=== PATIENT | male | born 1975 | race Caucasian/White ===

== ENCOUNTER 2018-09-30 00:27 | Emergency (ER) | payer BC ==
[2018-09-30] MEDS ORDERED: Ondansetron 4 MG/2 ML SDV IVPUSH ONE (00:55)
[2018-09-30] MEDS ORDERED: Sodium Chloride 0.9% 1,000 ML IV STA (00:55)
[2018-09-30] MEDS ORDERED: Sodium Chloride 0.9% 10 ML Syringe FLUSH PRN (00:55)
[2018-09-30] MEDS ORDERED: HYDROmorphone 1 MG/ML Syringe IVPUSH ONE (00:56)
--- NOTE | 2018-09-30 01:44 | EDM.PDOC ---
ED HPI GENERAL MEDICAL PROBLEM - General Chief Complaint: Gastrointestinal Problem Stated Complaint: NAUSEA Time Seen by Provider: 09/30/18 00:45 Source of Information: Reports: Patient History Limitations: Reports: No Limitations - History of Present Illness INITIAL COMMENTS - FREE TEXT/NARRATIVE: The patient presents with right lower abdominal pain, nausea and vomiting. This started about 3 days ago. It was intermittent but now it is constant in the right lower abdomen. He has nausea and vomiting. He has no diarrhea. He still has his appendix and gallbladder. He has no fever, chills, cough, chest pain or shortness of breath. Onset: Gradual Duration: Day(s): (3) Location: Reports: Abdomen Quality: Reports: Sharp Severity: Moderate Improves with: Reports: None Worsens with: Reports: None Associated Symptoms: Reports: Nausea/Vomiting. Denies: Chest Pain, Cough, Fever /Chills, Headaches, Shortness of Breath Bilateral Abdominal Pain Score (Numeric/FACES): 5 - Related Data Allergies Allergy/AdvReac Type Severity Reaction Status Date / Time Cephalosporins Allergy Anaphylactic Verified 09/30/18 00:42 Shock Penicillins Allergy Anaphylactic Verified 09/30/18 00:42 Shock [id number]-[id number] Reductase Allergy Anaphylactic Verified 09/30/18 00:42 Inhibitor Shock Home Meds: Home Meds ALPRAZolam [Alprazolam] 0.25 mg PO BID PRN 09/30/18 [History] DULoxetine [Cymbalta] 09/30/18 [History] Ondansetron [Zofran ODT] 4 mg PO Q6H PRN #20 tab.dis 09/30/18 [Rx] QUEtiapine [SEROquel] 09/30/18 [History] glipiZIDE [Glucotrol] 10 mg PO BID 09/30/18 [History] metFORMIN HCl [Metformin HCl] 1,000 mg PO ASDIRECTED 09/30/18 [History] Past Medical History HEENT History: Reports: Other (See Below) Other HEENT History: abcessed tooth Cardiovascular History: Reports: Other (See Below) Other Cardiovascular History: atherosclerosis of the heart Gastrointestinal History: Reports: Other (See Below) Other Gastrointestinal History: pancreatitis Neurological History: Reports: Other (See Below) Other Neuro History: head injuries Psychiatric History: Reports: Anxiety, Depression, Panic Attack Endocrine/Metabolic History: Reports: Diabetes, Type II - Past Surgical History HEENT Surgical History: Reports: Naso-Sinus Surgery Social & Family History - Tobacco Use Smoking Status *Q: Former Smoker Used Tobacco, but Quit: Yes Month/Year Tobacco Last Used: 20 yrs ago - Caffeine Use Caffeine Use: Reports: Coffee, Energy Drinks - Recreational Drug Use Recreational Drug Use: Yes Drug Use in Last 12 Months: No ED ROS GENERAL - Review of Systems Review Of Systems: See Below Constitutional: Reports: No Symptoms HEENT: Reports: No Symptoms Respiratory: Reports: No Symptoms Cardiovascular: Reports: No Symptoms Endocrine: Reports: No Symptoms GI/Abdominal: Reports: Abdominal Pain (RLQ abdominal pain), Nausea, Vomiting. Denies: Diarrhea : Reports: No Symptoms Musculoskeletal: Reports: No Symptoms ED EXAM, GI/ABD - Physical Exam Exam: See Below Exam Limited By: No Limitations General Appearance: Alert, No Apparent Distress Ears: Normal External Exam Nose: Normal Inspection Head: Atraumatic, Normocephalic Neck: Normal Inspection Respiratory/Chest: No Respiratory Distress, Lungs Clear, Normal Breath Sounds Cardiovascular: Regular Rate, Rhythm, No Edema, No Murmur GI/Abdominal Exam: Soft, No Organomegaly, Tender (Moderate tenderness to the RLQ ) Course - Vital Signs Last Recorded V/S: Last Vital Signs Temp 97.2 F 09/30/18 00:39 Pulse 103 H 09/30/18 00:39 Resp 18 09/30/18 00:39 BP 131/92 H 09/30/18 00:39 Pulse Ox 95 09/30/18 00:39 - Orders/Labs/Meds Orders: Active Orders 24 hr Category Date Time Status Peripheral IV Care [RC] . DIRECTED Care 09/30/18 00:55 Active Abdomen Pelvis w Cont [CT] Stat Exams 09/30/18 00:55 Taken Sodium Chloride 0.9% [Saline Flush] Med 09/30/18 00:55 Active 10 ml FLUSH ASDIRECTED PRN ED Antiemetic Medication Reflex [OM.PC] Stat Oth 09/30/18 00:55 Ordered Peripheral IV Insertion Adult [OM.PC] Stat Oth 09/30/18 00:55 Ordered Medication Orders Sodium Chloride (Saline Flush) 10 ml FLUSH ASDIRECTED PRN PRN Reason: Keep Vein Open Last Admin: 09/30/18 01:34 Dose: 10 ml Labs: Laboratory Tests 09/30/18 09/30/18 09/30/18 Range/Units 01:25 01:25 03:30 WBC 4.93 (4.23-9.07) K/mm3 RBC 4.80 (4.63-6.08) M/mm3 Hgb 13.5 L (13.7-17.5) gm/L Hct 39.9 L (40.1-51.0) % MCV 83.1 (79.0-92.2) fl MCH 28.1 (25.7-32.2) pg MCHC 33.8 (32.2-35.5) g/dl RDW Std Deviation 38.9 (35.1-43.9) fL Plt Count 144 L (163-337) K/mm3 MPV 11.2 (9.4-12.3) fl Neut % (Auto) 64.6 (34.0-67.9) % Lymph % (Auto) 20.3 L (21.8-53.1) % [place] % (Auto) 11.0 (5.3-12.2) % Eos % (Auto) 3.9 (0.8-7.0) Baso % (Auto) 0.0 L (0.1-1.2) % Neut # (Auto) 3.19 (1.78-5.38) K/mm3 Lymph # (Auto) 1.00 L (1.32-3.57) K/mm3 [place] # (Auto) 0.54 (0.30-0.82) K/mm3 Eos # (Auto) 0.19 (0.04-0.54) K/mm3 Baso # (Auto) 0.00 L (0.01-0.08) K/mm3 Sodium 138 (136-145) mEq/L Potassium 4.1 (3.5-5.1) mEq/L Chloride 101 (98-107) mEq/L Carbon Dioxide 26 (21-32) mEq/L Anion Gap 15.1 H (5-15) BUN 16 (7-18) mg/dL Creatinine 1.1 (0.7-1.3) mg/dL Est Cr Clr Drug Dosing 82.91 mL/min Estimated GFR (MDRD) > 60 (>60) mL/min BUN/Creatinine Ratio 14.5 (14-18) Glucose 286 H (74-106) mg/dL Calcium 9.0 (8.5-10.1) mg/dL Total Bilirubin 0.3 (0.2-1.0) mg/dL AST 63 H (15-37) U/L ALT 73 H (16-63) U/L Alkaline Phosphatase 102 (46-116) U/L Total Protein 7.5 (6.4-8.2) g/dl Albumin 3.8 (3.4-5.0) g/dl Globulin 3.7 gm/dL Albumin/Globulin Ratio 1.0 (1-2) Lipase 208 (73-393) U/L Urine Color Yellow (Yellow) Urine Appearance Clear (Clear) Urine pH 6.5 (5.0-8.0) Ur Specific [place] 1.020 (1.005-1.030) Urine Protein Negative (Negative) Urine Glucose (UA) 1+ H (Negative) Urine Ketones Negative (Negative) Urine Occult Blood Negative (Negative) Urine Nitrite Negative (Negative) Urine Bilirubin Negative (Negative) Urine Urobilinogen 0.2 (0.2-1.0) Ur Leukocyte Esterase Negative (Negative) Urine RBC 0-5 (0-5) /hpf Urine WBC 0-5 (0-5) /hpf Ur Epithelial Cells 0-5 (0-5) /hpf Urine Bacteria Not seen (FEW) /hpf Urine Mucus Not seen (FEW) /hpf Meds: Medications Generic Name Dose Route Start Last Admin Trade Name Maya PRN Reason Stop Dose Admin Sodium Chloride 10 ml 09/30/18 00:55 09/30/18 01:34 Saline Flush FLUSH 10 ml ASDIRECTED PRN Administration Keep Vein Open Discontinued Medications Generic Name Dose Route Start Last Admin Trade Name Maya PRN Reason Stop Dose Admin Hydromorphone HCl 0.5 mg 09/30/18 00:56 09/30/18 01:34 Dilaudid IVPUSH 09/30/18 00:57 0.5 mg ONETIME ONE Administration Sodium Chloride 1,000 mls @ 1,000 mls/hr 09/30/18 00:55 09/30/18 01:32 Normal Saline IV 09/30/18 01:54 1,000 mls/hr .BOLUS STA Administration Iopamidol 100 ml 09/30/18 03:10 09/30/18 03:12 Isovue-300 (61%) IVPUSH 09/30/18 03:11 100 ml ONETIME ONE Administration Metoclopramide HCl 10 mg 09/30/18 02:55 09/30/18 03:00 Reglan IVPUSH 09/30/18 02:56 10 mg ONETIME ONE Administration Ondansetron HCl 4 mg 09/30/18 00:55 09/30/18 01:32 Zofran IVPUSH 09/30/18 00:56 4 mg ONETIME ONE Administration - Re-Assessments/Exams Free Text/Narrative Re-Assessment/Exam: 09/30/18 01:43 I ordered an IV NS 1L bolus, zofran 4mg IV, dilaudid 0.5mg IV, labs, UA and a CT of his abdomen and pelvis. 09/30/18 03:18 His CBC looks good. His anion gap was slightly elevated at 15.1. His glucose was elevated at 286. His AST was slightly elevated at 63 along with his ALT of 73. His lipase was normal. I am waiting for the results of the CT. 09/30/18 04:10 His UA looks good. His CT shows no acute findings. The appendix is well seen and appears normal in the right lower guadrant. He feels better. I will discharge him with some zofran. Departure - Departure Time of Disposition: 04:15 Disposition: Home, Self-Care 01 Condition: Good Clinical Impression: Vomiting, Abdominal pain - Discharge Information *PRESCRIPTION DRUG MONITORING PROGRAM REVIEWED*: Not Applicable *COPY OF PRESCRIPTION DRUG MONITORING REPORT IN PATIENT CHRISTINE: Not Applicable Prescriptions: Ondansetron [Zofran ODT] 4 mg PO Q6H PRN #20 tab.dis PRN Reason: Nausea\vomiting Referrals: Gayathri Shell, [facility] [Primary Care Provider] - 1 Week Forms: ED Department Discharge Additional Instructions: Drink plenty of fluids. Take the zofran every 6 hours as needed for nausea and vomiting. Please return if you are worse. - My Orders Last 24 Hours: My Active Orders 09/30/18 00:55 Peripheral IV Care [RC] . DIRECTED Abdomen Pelvis w Cont [CT] Stat Sodium Chloride 0.9% [Saline Flush] 10 ml FLUSH ASDIRECTED PRN ED Antiemetic Medication Reflex [OM.PC] Stat Peripheral IV Insertion Adult [OM.PC] Stat - Assessment/Plan Last 24 Hours: My Active Orders 09/30/18 00:55 Peripheral IV Care [RC] . DIRECTED Abdomen Pelvis w Cont [CT] Stat Sodium Chloride 0.9% [Saline Flush] 10 ml FLUSH ASDIRECTED PRN ED Antiemetic Medication Reflex [OM.PC] Stat Peripheral IV Insertion Adult [OM.PC] Stat
[2018-09-30] MEDS ORDERED: Metoclopramide 10 MG/2 ML SDV IVPUSH ONE (02:55)
[2018-09-30] MEDS ORDERED: Iopamidol 612 MG/ML 100 ML Bottle IVPUSH ONE (03:10)
--- NOTE | 2018-09-30 15:10 | CT ---
CT abdomen and pelvis Technique: Multiple axial sections were obtained from above the dome of the diaphragm inferiorly through the pubic symphysis. Intravenous and oral contrast was utilized. Delayed images were obtained through the bladder. Comparison: No prior abdominal imaging. Findings: Small portion of the visualized lung bases are clear. Fatty infiltration is noted throughout the liver. Spleen appears within normal limits. Adrenal glands show no nodule. Pancreas is within normal limits. Kidneys show symmetric contrast enhancement without hydronephrosis or mass. Adrenal glands show no nodule. Aorta shows no aneurysm. No retroperitoneal adenopathy is seen. Appendix is seen and is normal in size. No pelvic mass or adenopathy is seen. No free fluid or inflammatory change is seen. Delayed images show contrast within the bladder. Bone window settings were reviewed which show severe disc space narrowing at L5-S1 with vacuum phenomena. Hemangioma is noted within T11 which is incidental. Disc calcification is seen posteriorly at L4-L5. Impression: 1. Fatty infiltration within the liver. Other incidental findings. Nothing acute is appreciated on CT study of the abdomen and pelvis. Diagnostic code #2 I agree with preliminary report from [facility], finalized on 09/30/18, 5:02 AM Central Time
== END 2018-09-30 04:23 | disposition home or self-care (01) ==
LOC: JD.ED 00:27
DX: R11.2 Nausea with vomiting, unspecified (principal); R10.9 Unspecified abdominal pain; Z88.0 Allergy status to penicillin; Z88.8 Allergy status to other drugs, medicaments and biological substances; Z87.891 Personal history of nicotine dependence
CPT/HCPCS: 36415; 74177; 80053; 81001; 83690; 85025; 96361; 96374; 96375; 99284; J1170; J2405; J2765; J7040; Q9967

== ENCOUNTER 2019-04-16 16:36 | Emergency (ER) | payer BC ==
--- NOTE | 2019-04-16 17:53 | EDM.PDOC ---
ED HPI GENERAL MEDICAL PROBLEM - General Chief Complaint: Respiratory Problem Stated Complaint: RIGHT EAR PAIN AND SORE THROAT Time Seen by Provider: 04/16/19 17:38 Source of Information: Reports: Patient History Limitations: Reports: No Limitations - History of Present Illness INITIAL COMMENTS - FREE TEXT/NARRATIVE: 43-year-old male presents to the ED with a one-week history of illness. States it started primarily with a sore throat that has progressively worsened. It is very severely sharp and stabbing and radiates to his right ear with attempts to swallow. It's making eating and drinking extremely difficult in spite of being hungry. Has developed a productive cough over the last 36 hours brownish sputum produced without blood. He is diaphoretic cool and clammy. She had intermittent fever and chills. Pain in his right ear is now become constant. In his right maxillary sinus and behind his right ear. He still has his tonsils in place. Current pain is rated as 10 out of 10 with attempts to swallow. Denies nausea vomiting or diarrhea. No genitourinary complaints. No one else at home is ill. He works in [employer]. Onset: Gradual Onset Date: 04/10/19 Duration: Day(s):, Getting Worse Location: Reports: Head, Face (Throat pain rating to his right ear right, severe pain right mastoid process pain right maxillary sinus pain), Neck, Chest (Active cough brownish sputum), Other (Generalized myalgia fever and chills) Quality: Reports: Burning, Sharp (Pain rating to his ear is very sharp and stabbing), Stabbing, Other Severity: Severe (10 out of 10) Improves with: Reports: None Worsens with: Reports: Eating Context: Denies: Activity, Exercise, Lifting, Sick Contact, Trauma, Other Associated Symptoms: Reports: Cough, cough w sputum, Diaphoresis, Fever/Chills, Headaches, Malaise, Weakness. 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 Throat Pain Score (Numeric/FACES): 8 - Related Data Allergies Allergy/AdvReac Type Severity Reaction Status Date / Time cephalexin [From Keflex] Allergy Anaphylactic Verified 04/16/19 16:51 Shock Cephalosporins Allergy Anaphylactic Verified 04/16/19 16:51 Shock Penicillins Allergy Anaphylactic Verified 04/16/19 16:51 Shock [id number] Reductase Allergy Anaphylactic Verified 04/16/19 16:51 Inhibitor Shock empagliflozin AdvReac Abdominal Verified 04/16/19 16:51 [From Jardiance] Pain Home Meds: Home Meds ALPRAZolam [Alprazolam] 0.25 mg PO BID PRN 09/30/18 [History] DULoxetine [Cymbalta] 90 mg PO DAILY 09/30/18 [History] glipiZIDE [Glucotrol] 10 mg PO BID 09/30/18 [History] metFORMIN HCl [Metformin HCl] 1,000 mg PO BID 09/30/18 [History] Doxycycline [Vibramycin] 100 mg PO BID #24 cap 04/16/19 [Rx] oxyCODONE HCl/Acetaminophen [Percocet 5-325 mg Tablet] 1 - 2 each PO Q4H PRN # 16 tablet 04/16/19 [Rx] Past Medical History HEENT History: Reports: Other (See Below) Other HEENT History: abcessed tooth Cardiovascular History: Reports: High Cholesterol Other Cardiovascular History: atherosclerosis of the heart Respiratory History: Reports: Sleep Apnea Gastrointestinal History: Reports: Colon Polyp, GERD, PUD Other Gastrointestinal History: pancreatitis Genitourinary History: Reports: None Musculoskeletal History: Reports: Neck Pain, Chronic Other Musculoskeletal History: neck pain Neurological History: Reports: Other (See Below) Other Neuro History: head injuries Psychiatric History: Reports: Anxiety, Depression, Panic Attack Endocrine/Metabolic History: Reports: Diabetes, Type II (For probably 10 years. He reports not very good control with average sugars about 200-210. Needs to speak with his doctor about changing over to insulin.), Obesity/BMI 30+ Hematologic History: Reports: None Immunologic History: Reports: None Oncologic (Cancer) History: Reports: None Dermatologic History: Reports: None - Infectious Disease History Infectious Disease History: Reports: None - Past Surgical History Head Surgeries/Procedures: Reports: None HEENT Surgical History: Reports: Naso-Sinus Surgery GI Surgical History: Reports: Colonoscopy, EGD, Hernia, Inguinal Male Surgical History: Reports: Other (See Below) Social & Family History - Tobacco Use Smoking Status *Q: Never Smoker - Caffeine Use Caffeine Use: Reports: Coffee, Soda Caffeine Use Comment: Gale ASA has caffeine in it. - Recreational Drug Use Recreational Drug Use: Yes Drug Use in Last 12 Months: No - Living Situation & Occupation Living situation: Reports: , with Spouse, with Family (Son) Occupation: Employed ([employer]) ED ROS GENERAL - Review of Systems Review Of Systems: See Below Constitutional: Reports: Fever, Chills, Malaise, Weakness, Fatigue HEENT: Reports: Throat Pain. Denies: Hearing Loss, Nosebleed, Nose Pain ( Severe throat pain radiating to the right ear.), Rhinitis, Sinus Problem, Throat Swelling, Vision Change Respiratory: Reports: Wheezing, Cough, Sputum. Denies: Shortness of Breath, Pleuritic Chest Pain Cardiovascular: Reports: No Symptoms Endocrine: Reports: Fatigue GI/Abdominal: Reports: No Symptoms : Reports: No Symptoms Musculoskeletal: Reports: Muscle Pain Skin: Reports: No Symptoms (Generalized myalgia) Neurological: Reports: Headache Psychiatric: Reports: No Symptoms Hematologic/Lymphatic: Reports: No Symptoms Immunologic: Reports: No Symptoms ED EXAM, GENERAL - Physical Exam Exam: See Below Exam Limited By: No Limitations General Appearance: Alert, WD/WN, Mild Distress, Other (He feels warm to palpation and diaphoretic. He appears unwell.) Eye Exam: Bilateral Eye: Normal Inspection Ears: Normal TMs Nose: Other (His swelling of the turbinates bilaterally but no nasal polyps appreciated.) Throat/Mouth: Normal Inspection, Normal Lips, Normal Teeth, Normal Oropharynx, Other (Tonsils are visible but the right tonsils very small in size. There certainly no peritonsillar abscess. Parotid gland appears normal. There is no inflammation of the floor the mouth.) Head: Atraumatic, Normocephalic, Facial Tenderness, Sinus Tenderness (Mild facial tenderness and swelling over the right maxillary sinus.) Neck: Normal Inspection ( Right maxillary sinus. Right mastoid sinus.), Supple, Non-Tender, Full Range of Motion, Other (No significant adenopathy in the neck wrist posterior anterior chain). No: Lymphadenopathy (L), Lymphadenopathy (R) Respiratory/Chest: No Respiratory Distress, Lungs Clear, Normal Breath Sounds, Wheezing. No: Decreased Breath Sounds, Crackles, Rales Cardiovascular: Normal Peripheral Pulses, Regular Rate, Rhythm, No Edema, No Gallop, No Murmur, No Rub Peripheral Pulses: 2+: Posterior Tibial (L), Posterior Tibial (R), Dorsalis Pedis (L), Dorsalis Pedis (R) GI/Abdominal: Normal Bowel Sounds, Soft, Non-Tender, No Organomegaly, No Distention, No Abnormal Bruit, No Mass, Pelvis Stable Back Exam: Normal Inspection, Full Range of Motion. No: CVA Tenderness (L), CVA Tenderness (R) Extremities: Normal Inspection, Normal Range of Motion, Non-Tender, No Pedal Edema Neurological: Alert, Oriented, CN II-XII Intact, Normal Cognition, Normal Gait Psychiatric: Normal Affect, Normal Mood Skin Exam: Warm, Intact, Normal Color, No Rash, Diaphoretic Course - Vital Signs Last Recorded V/S: Last Vital Signs Temp 36.1 C 04/16/19 16:47 Pulse 102 H 04/16/19 16:47 Resp 16 04/16/19 16:47 BP 147/92 H 04/16/19 16:47 Pulse Ox 99 04/16/19 16:47 - Orders/Labs/Meds Orders: Active Orders 24 hr Category Date Time Status Chest 1V Frontal [CR] Stat Exams 04/16/19 17:49 Taken CULTURE BLOOD [BC] Stat Lab 04/16/19 18:05 Received CULTURE BLOOD [BC] Stat Lab 04/16/19 18:14 Received CULTURE STREP A CONFIRMATION [] Stat Lab 04/16/19 17:36 Results STREP SCRN A RAPID W CULT CONF [] Stat Lab 04/16/19 17:36 Results Dextrose 5%-0.9% NaCl [Dextrose 5%-Normal Saline] 1,000 Med 04/16/19 18:00 Active ml IV ASDIRECTED Ketorolac [Toradol] Med 04/16/19 18:00 Active 30 mg IVPUSH ONETIME Blood Culture x2 Reflex Set [OM.PC] Stat Oth 04/16/19 17:50 Ordered Medication Orders Dextrose/Sodium Chloride (Dextrose 5%-Normal Saline) 1,000 mls @ 999 mls/hr IV ASDIRECTED NEENA Last Admin: 04/16/19 18:07 Dose: 999 mls/hr Ketorolac Tromethamine (Toradol) 30 mg IVPUSH ONETIME NEENA Last Admin: 04/16/19 18:12 Dose: 30 mg Labs: Laboratory Tests 09/02/19 09/02/19 09/02/19 Range/Units 18:05 18:05 18:05 WBC 5.27 (4.23-9.07) K/mm3 RBC 4.76 (4.63-6.08) M/mm3 Hgb 13.2 L (13.7-17.5) gm/L Hct 39.0 L (40.1-51.0) % MCV 81.9 (79.0-92.2) fl MCH 27.7 (25.7-32.2) pg MCHC 33.8 (32.2-35.5) g/dl RDW Std Deviation 37.3 (35.1-43.9) fL Plt Count 172 (163-337) K/mm3 MPV 11.3 (9.4-12.3) fl Neutrophils % (Manual) 64 H (40-60) % Band Neutrophils % 0 (0-10) % Lymphocytes % (Manual) 25 (20-40) % Atypical Lymphs % 0 % Monocytes % (Manual) 10 (2-10) % Eosinophils % (Manual) 1 (0.8-7.0) % Basophils % (Manual) 0 L (0.2-1.2) Platelet Estimate Adequate Polychromasia 1+ slight RBC Morph Comment Abnormal ESR 64 H (0-15) mm/hr Sodium 135 L (136-145) mEq/L Potassium 4.3 (3.5-5.1) mEq/L Chloride 99 (98-107) mEq/L Carbon Dioxide 30 (21-32) mEq/L Anion Gap 10.3 (5-15) BUN 10 (7-18) mg/dL Creatinine 0.9 (0.7-1.3) mg/dL Est Cr Clr Drug Dosing 100.28 mL/min Estimated GFR (MDRD) > 60 (>60) mL/min BUN/Creatinine Ratio 11.1 L (14-18) Glucose 394 H (74-106) mg/dL Hemoglobin A1c (4.50-6.20) % Calcium 9.3 (8.5-10.1) mg/dL Total Bilirubin 0.3 (0.2-1.0) mg/dL AST 21 (15-37) U/L ALT 41 (16-63) U/L Alkaline Phosphatase 118 H (46-116) U/L C-Reactive Protein 2.2 H* (<1.0) mg/dL Total Protein 8.2 (6.4-8.2) g/dl Albumin 3.7 (3.4-5.0) g/dl Globulin 4.5 gm/dL Albumin/Globulin Ratio 0.8 L (1-2) Monoscreen (NEGATIVE) 04/16/19 04/16/19 Range/Units 18:05 18:05 WBC (4.23-9.07) K/mm3 RBC (4.63-6.08) M/mm3 Hgb (13.7-17.5) gm/L Hct (40.1-51.0) % MCV (79.0-92.2) fl MCH (25.7-32.2) pg MCHC (32.2-35.5) g/dl RDW Std Deviation (35.1-43.9) fL Plt Count (163-337) K/mm3 MPV (9.4-12.3) fl Neutrophils % (Manual) (40-60) % Band Neutrophils % (0-10) % Lymphocytes % (Manual) (20-40) % Atypical Lymphs % % Monocytes % (Manual) (2-10) % Eosinophils % (Manual) (0.8-7.0) % Basophils % (Manual) (0.2-1.2) Platelet Estimate Polychromasia RBC Morph Comment ESR (0-15) mm/hr Sodium (136-145) mEq/L Potassium (3.5-5.1) mEq/L Chloride (98-107) mEq/L Carbon Dioxide (21-32) mEq/L Anion Gap (5-15) BUN (7-18) mg/dL Creatinine (0.7-1.3) mg/dL Est Cr Clr Drug Dosing mL/min Estimated GFR (MDRD) (>60) mL/min BUN/Creatinine Ratio (14-18) Glucose (74-106) mg/dL Hemoglobin A1c 11.10 H (4.50-6.20) % Calcium (8.5-10.1) mg/dL Total Bilirubin (0.2-1.0) mg/dL AST (15-37) U/L ALT (16-63) U/L Alkaline Phosphatase (46-116) U/L C-Reactive Protein (<1.0) mg/dL Total Protein (6.4-8.2) g/dl Albumin (3.4-5.0) g/dl Globulin gm/dL Albumin/Globulin Ratio (1-2) Monoscreen Negative (NEGATIVE) Meds: Medications Generic Name Dose Route Start Last Admin Trade Name Freq PRN Reason Stop Dose Admin Dextrose/Sodium Chloride 1,000 mls @ 999 mls/hr 04/16/19 18:00 04/16/19 18:07 Dextrose 5%-Normal Saline IV 999 mls/hr ASDIRECTED NEENA Administration Ketorolac Tromethamine 30 mg 04/16/19 18:00 04/16/19 18:12 Toradol IVPUSH 30 mg ONETIME NEENA Administration Discontinued Medications Generic Name Dose Route Start Last Admin Trade Name Freq PRN Reason Stop Dose Admin Hydromorphone HCl 1 mg 04/16/19 17:55 04/16/19 18:12 Dilaudid IVPUSH 04/16/19 17:56 1 mg ONETIME ONE Administration Clindamycin Phosphate 900 mg/ 106 mls @ 200 mls/hr 04/16/19 19:22 Sodium Chloride IV 04/16/19 19:53 ONETIME ONE Ondansetron HCl 4 mg 04/16/19 17:56 04/16/19 18:13 Zofran IVPUSH 04/16/19 17:57 4 mg ONETIME ONE Administration - Radiology Interpretation Free Text/Narrative:: 43-year-old male presents to the ED with a one-week history of sore throat and then the development of fever chills and productive cough over the last 36 hours. Severe pain with swallowing rating up into his right ear. Right ear pain is now becoming constant. He has a headache. He wants to eat but he can't because of the severe pain in his throat. Rates it as 10 out of 10 with swallowing. On examination there is very little erythema of his throat his tonsils appear normal without any peritonsillar abscess. I could find no submandibular adenopathy in the floor of his throat or neck. There is no anterior posterior cervical adenopathy either. There is mild tenderness of the right maxillary sinus as well as the right mastoid sinus. Both tympanic membranes appear normal. Lungs sound clear to auscultation percussion. Clinically however appears to be ill. Nurses have ordered a rapid strep screen. I will have maxillary sinus CT done. He will have a chest x-ray done. Lab work to include blood cultures 2. IV D5 normal saline at open. Given Toradol 30 mg IV for pain relief with Reglan 10 mg IV and Dilaudid 1 mg IV for pain relief. - Re-Assessments/Exams Free Text/Narrative Re-Assessment/Exam: 04/16/19 18:56 CT of the paranasal sinuses shows complete occlusion of the left maxillary sinus. Right has mild mucosal thickening. There is diffuse ethmoid and sphenoid sinusitis as well. Frontal sinuses are clear. There is no evidence of a peritonsillar swelling or abscess. The mastoid processes are normal. Chest x-ray suggests the minimal infiltrate right perihilar area. 04/16/19 18:57 Labs reveal a normal white count at 5.27 with 64% neutrophils and no bands. Hemoglobin is 13.2 with hematocrit of 39.0. No atypical lymphocytes reported. The count is 172,000. Sodium 135 slightly low. Potassium 4.3 with chloride 99 bicarbonate is 30. Anion gap is 10.3. BUN is 10 with a creatinine of 0.9. GFR is greater than 60. Glucose is elevated at 394. Calcium is 9.3 with a total bilirubin of 0.3. Alkaline phosphatase today slightly elevated at 118. C-reactive protein is 2.2. Total protein 8.2 with an albumin fraction of 3.7. 04/16/19 19:52 Monospot is negative. Hemoglobin A1c is 11.10 indicating his type 2 diabetes is markedly out of control. This patient needs to be started on insulin. My plan is to give him a dose of intravenous antibiotic as I believe his current throat pain is indeed bacterial in origin. He also has extensive sinus disease. He is allergic to cephalosporins and all penicillins. Zyvox was contraindicated due to into action with his venlafaxine. Levaquin is contraindicated due to possible interaction with glipizide. Therefore given clindamycin 900 mg IV and I will give him doxycycline -100 mg 2 times a day for the next 12 days. I will have him follow-up with his personal care physician within the next week to discuss options for treatment for his uncontrolled type 2 diabetes which is contributing largely to his potential for infection. I will also discharge him with Percocet tabs 5/325 milligrams strength -18 tablets one or 2 every 4-6 hours for pain relief. He can barely swallow at this time. The case is will be dispensed through the [employer] machine. Departure - Departure Time of Disposition: 21:15 Disposition: Home, Self-Care 01 Condition: Fair Clinical Impression: Bronchitis, Uncontrolled type 2 diabetes mellitus Pharyngitis Qualifiers: Pharyngitis/tonsillitis etiology: other specified organisms Qualified Code(s): J02.8 - Acute pharyngitis due to other specified organisms Sinusitis Qualifiers: Sinusitis location: pansinusitis Chronicity: subacute Qualified Code(s): J01.40 - Acute pansinusitis, unspecified - Discharge Information *PRESCRIPTION DRUG MONITORING PROGRAM REVIEWED*: Not Applicable *COPY OF PRESCRIPTION DRUG MONITORING REPORT IN PATIENT CHRISTINE: Not Applicable Prescriptions: Doxycycline [Vibramycin] 100 mg PO BID #24 cap oxyCODONE HCl/Acetaminophen [Percocet 5-325 mg Tablet] 1 - 2 each PO Q4H PRN # 16 tablet PRN Reason: pain relief. Instructions: Sinusitis, Adult, [id number], Hyperglycemia Referrals: Gayathri Shell [employer] [Primary Care Provider] - Forms: ED Department Discharge Additional Instructions: Evaluation the emergency room today in regards to sore throat over the last week that is progressively worsened and now associated with fever and chills over the last 48 hours. Also development of upper respiratory tract infection with paroxysmal mildly productive cough. No one type 2 diabetes with poor control. On examination the oropharynx is very minimally inflamed and there is no evidence of tonsillitis and no significant lymph node swelling in the floor of the throat or mouth or along the neck. CT scan of the maxillofacial bones shows extensive sinusitis involving the sphenoids, the ethmoids in the left maxillary sinus is completely occluded in the right maxillary sinus is partially occluded due to infection. The mastoids which are behind her ears were clear. There was no middle ear infection on CT. The referred pain to her right ear with swallowing is from inflammation of the throat. I could not identify any peritonsillar abscess on CT exam. Chest x-ray also proved to be negative for any signs of pneumonia. Therefore diagnosis is subacute sinusitis. Acute pharyngitis with streptococcus screening negative. And bronchitis without pneumonia. You're treated with initial dose of antibiotic clindamycin 900 mg in the emergency department since you have multiple allergies to other medications and other antibiotics are contraindicated due to current medication usage. Emend as an outpatient will be doxycycline 100 mg twice daily for the next 12 days to clear up infection in your sinuses your throat and her chest. Tablet is due tomorrow morning. Said tabs 5/325 mg one or 2 every 4-6 hours needed for pain relief for the next couple days until the antibiotics become effective. Of note Monospot or mono screen was negative as well. Lab tests did reveal uncontrolled type 2 diabetes with glycosylated protein of 11.1. Slightly once it stays above 9.0 insulin is indicated to control your blood sugars. At this time it's impossible to a few blood sugars are elevated due to current infection To close eye on and I would advise discussing treatment options. Diabetes with your personal care physician as this is likely the cause of development of an infection due to uncontrolled diabetes. - My Orders Last 24 Hours: My Active Orders 04/16/19 17:36 CULTURE STREP A CONFIRMATION [RM] Stat STREP SCRN A RAPID W CULT CONF [RM] Stat 04/16/19 17:49 Chest 1V Frontal [CR] Stat 04/16/19 17:50 Blood Culture x2 Reflex Set [OM.PC] Stat 04/16/19 18:00 Dextrose 5%-0.9% NaCl [Dextrose 5%-Normal Saline] 1,000 ml IV ASDIRECTED Ketorolac [Toradol] 30 mg IVPUSH ONETIME 04/16/19 18:05 CULTURE BLOOD [BC] Stat 04/16/19 18:14 CULTURE BLOOD [BC] Stat - Assessment/Plan Last 24 Hours: My Active Orders 04/16/19 17:36 CULTURE STREP A CONFIRMATION [RM] Stat STREP SCRN A RAPID W CULT CONF [RM] Stat 04/16/19 17:49 Chest 1V Frontal [CR] Stat 04/16/19 17:50 Blood Culture x2 Reflex Set [OM.PC] Stat 04/16/19 18:00 Dextrose 5%-0.9% NaCl [Dextrose 5%-Normal Saline] 1,000 ml IV ASDIRECTED Ketorolac [Toradol] 30 mg IVPUSH ONETIME 04/16/19 18:05 CULTURE BLOOD [BC] Stat 04/16/19 18:14 CULTURE BLOOD [BC] Stat
[2019-04-16] MEDS ORDERED: HYDROmorphone 1 MG/ML Syringe IVPUSH ONE (17:55)
[2019-04-16] MEDS ORDERED: Ondansetron 4 MG/2 ML SDV IVPUSH ONE (17:56)
[2019-04-16] MEDS ORDERED: Dextrose 5%-0.9% NaCl 1,000 ML IV SCH (18:00)
[2019-04-16] MEDS ORDERED: Ketorolac 30 MG/ML SDV IVPUSH SCH (18:00)
--- NOTE | 2019-04-16 18:50 | CT ---
CT paranasal sinuses Technique: Multiple axial sections were obtained through the paranasal sinuses. Reconstructed coronal and sagittal images were obtained. Findings: Minimal mucosal thickening is seen within the frontal sinuses. Moderate mucosal thickening seen within the ethmoid sinuses. Mild mucosal thickening is noted within the left maxillary sinus. Minimal area of mucosal thickening is seen within the right maxillary sinus. Mild mucosal thickening noted within the sphenoid sinus. No air-fluid levels are seen within any of the paranasal sinuses. Ostiomeatal complexes are clear. Visualized facial structures appear intact. Right and left globes are symmetric. No retrobulbar are abnormality is seen. Mastoid sinuses and middle ear cavities are clear. Impression: 1. Sinus findings have an appearance of mild chronic sinusitis. Nothing is seen to indicate acute sinusitis. 2. No additional abnormality is appreciated on CT study of the paranasal sinuses. Diagnostic code #3
[2019-04-16] MEDS ORDERED: Clindamycin Phosphate 900 MG in Sodium Chloride 0.9% 100 ML IV ONE ×3 (19:22→20:15)
[2019-04-16 19:24] LABS: HEMOGLOBIN A1C 11.1 % (4.50-6.20)
[2019-04-16] MEDS ORDERED: Clindamycin Phosphate 900 MG in Sodium Chloride 0.9% 100 ML IV SCH (20:00)
[2019-04-16] MEDS ORDERED: Sodium Chloride 0.9% 100 ML IV SCH (20:00)
--- NOTE | 2019-04-17 06:54 | CR ---
Chest: Portable view of the chest was obtained. Comparison: No prior chest x-ray is available. Heart size and mediastinum are normal. Lungs are clear. Bony structures are grossly intact. Impression: 1. Nothing acute is seen on portable chest x-ray. Diagnostic code #1
== END 2019-04-16 20:57 | disposition home or self-care (01) ==
LOC: JD.ED 16:36
DX: J40 Bronchitis, not specified as acute or chronic (principal); J02.8 Acute pharyngitis due to other specified organisms; J01.40 Acute pansinusitis, unspecified; E11.9 Type 2 diabetes mellitus without complications; E78.00 Pure hypercholesterolemia, unspecified; F41.9 Anxiety disorder, unspecified; F32.9 Major depressive disorder, single episode, unspecified; Z88.1 Allergy status to other antibiotic agents; Z88.0 Allergy status to penicillin; Z88.8 Allergy status to other drugs, medicaments and biological substances; Z79.84 Long term (current) use of oral hypoglycemic drugs; Z79.899 Other long term (current) drug therapy
CPT/HCPCS: 36415; 70486; 71045; 80053; 83036; 85007; 85027; 85652; 86140; 86308; 87040; 87081; 87430; 96361; 96365; 96375; 99284; J1170; J1885; J2405; J3490; J7030; J7042

== ENCOUNTER 2020-02-22 13:14 | Emergency (ER) | payer BC ==
[2020-02-22] MEDS ORDERED: Cyclobenzaprine 10 MG Tab PO ONE (13:52)
[2020-02-22] MEDS ORDERED: Ketorolac 60 MG/2 ML SDV IM ONE (13:52)
--- NOTE | 2020-02-22 14:04 | EDM.PDOC ---
ED HPI GENERAL MEDICAL PROBLEM - General Chief Complaint: General Stated Complaint: SORE NECK MUSCLES Time Seen by Provider: 02/22/20 13:39 Source of Information: Reports: Patient History Limitations: Reports: No Limitations - History of Present Illness INITIAL COMMENTS - FREE TEXT/NARRATIVE: Patient is a 44-year-old male who presents to the emergency department with a 3- day history of pain to his right posterior shoulder radiating up into the right side of his neck. He states he awoke with the pain and that there was no precipitating injury. He has been using Tylenol, ibuprofen, Aleve, Flexeril, heat, and cold without relief. He states that he does have a history of neck problems and has had MRIs done of his cervical spine in the past which did show abnormalities. States that these MRIs were completed in our facility. He has never had any surgeries on his neck or spine. He denies any numbness or tingling to his right upper extremity. Neck Pain Score (Numeric/FACES): 8 - Related Data Allergies Allergy/AdvReac Type Severity Reaction Status Date / Time cephalexin [From Keflex] Allergy Severe Anaphylactic Verified 02/22/20 13:28 Shock Cephalosporins Allergy Severe Anaphylactic Verified 02/22/20 13:28 Shock Penicillins Allergy Severe Anaphylactic Verified 02/22/20 13:28 Shock Jplvncb-Uly-Yqv Reductase Allergy Severe Anaphylactic Verified 02/22/20 13:28 Inhibitor Shock empagliflozin AdvReac Severe Abdominal Verified 02/22/20 13:28 [From Jardiance] Pain Home Meds: Home Meds ALPRAZolam [Alprazolam] 0.25 mg PO BID PRN 09/30/18 [History] DULoxetine [Cymbalta] 90 mg PO DAILY 09/30/18 [History] glipiZIDE [Glucotrol] 10 mg PO BID 09/30/18 [History] metFORMIN HCl [Metformin HCl] 1,000 mg PO BID 09/30/18 [History] Acetaminophen/HYDROcodone [Orion 325-5 MG] 1 - 2 tab PO Q6H PRN #10 tablet 02/22/20 [Rx] Diclofenac Sodium [Voltaren] 50 mg PO Q8H 5 Days #15 tab.ec 02/22/20 [Rx] Testosterone [Androgel] 1.25 gm TOP DAILY 02/22/20 [History] predniSONE [Prednisone] 20 mg PO Q12H 5 Days #10 tablet 02/22/20 [Rx] Past Medical History HEENT History: Reports: Other (See Below) Other HEENT History: abcessed tooth Cardiovascular History: Reports: High Cholesterol Other Cardiovascular History: atherosclerosis of the heart Respiratory History: Reports: Sleep Apnea Gastrointestinal History: Reports: Colon Polyp, GERD, PUD Other Gastrointestinal History: pancreatitis Genitourinary History: Reports: None Musculoskeletal History: Reports: Neck Pain, Chronic Other Musculoskeletal History: neck pain Neurological History: Reports: Other (See Below) Other Neuro History: head injuries Psychiatric History: Reports: Anxiety, Depression, Panic Attack Endocrine/Metabolic History: Reports: Diabetes, Type II, Obesity/BMI 30+ Hematologic History: Reports: None Immunologic History: Reports: None Oncologic (Cancer) History: Reports: None Dermatologic History: Reports: None - Infectious Disease History Infectious Disease History: Reports: None - Past Surgical History Head Surgeries/Procedures: Reports: None HEENT Surgical History: Reports: Naso-Sinus Surgery GI Surgical History: Reports: Colonoscopy, EGD, Hernia, Inguinal Male Surgical History: Reports: Other (See Below) Social & Family History - Family History Family Medical History: Noncontributory - Tobacco Use Smoking Status *Q: Former Smoker Used Tobacco, but Quit: Yes Month/Year Tobacco Last Used: 01/2005 - Caffeine Use Caffeine Use: Reports: Coffee, Tea Caffeine Use Comment: [employer] has caffeine in it. - Recreational Drug Use Recreational Drug Use: Yes Drug Use in Last 12 Months: No Recreational Drug Type: Reports: Ecstasy, Marijuana/Hashish Recreational Drug Use Frequency: Rarely - Living Situation & Occupation Living situation: Reports: , with Spouse, with Family (Son) Occupation: Employed ([employer]) ED ROS GENERAL - Review of Systems Review Of Systems: See Below Constitutional: Reports: No Symptoms. Denies: Fever, Chills, Weakness HEENT: Reports: No Symptoms Respiratory: Reports: No Symptoms Cardiovascular: Reports: No Symptoms Endocrine: Reports: No Symptoms GI/Abdominal: Reports: No Symptoms : Reports: No Symptoms Musculoskeletal: Reports: Neck Pain (Right sided), Shoulder Pain (Right posterior) Skin: Reports: No Symptoms Neurological: Reports: No Symptoms Psychiatric: Reports: No Symptoms Hematologic/Lymphatic: Reports: No Symptoms Immunologic: Reports: No Symptoms ED EXAM, GENERAL - Physical Exam Exam: See Below Exam Limited By: No Limitations General Appearance: Alert, WD/WN, No Apparent Distress Neck: Normal Inspection, Tender Lateral (Right), Other (Positive right-sided Spurling maneuver. Patient verbalizes pain and tingling down his right arm upon compression.). No: Tender Midline Respiratory/Chest: No Respiratory Distress, Lungs Clear, Normal Breath Sounds, No Accessory Muscle Use, Chest Non-Tender Cardiovascular: Normal Peripheral Pulses, Regular Rate, Rhythm, No Edema, No Gallop, No JVD, No Murmur, No Rub Back Exam: Normal Inspection, Paraspinal Tenderness (Throughout the right trapezius muscle). No: Vertebral Tenderness Neurological: Alert, Oriented, CN II-XII Intact, Normal Cognition, Normal Gait, Normal Reflexes, No Motor/Sensory Deficits Course - Vital Signs Last Recorded V/S: Last Vital Signs Temp 97.1 F 02/22/20 13:22 Pulse 103 H 02/22/20 13:22 Resp 18 02/22/20 13:22 BP 146/91 H 02/22/20 13:22 Pulse Ox 97 02/22/20 13:22 - Orders/Labs/Meds Meds: Medications Discontinued Medications Generic Name Dose Route Start Last Admin Trade Name Freq PRN Reason Stop Dose Admin Hydrocodone Bitart/Acetaminophen 1 tab 02/22/20 14:46 Orion 325-5 Mg PO 02/22/20 14:47 ONETIME ONE Cyclobenzaprine HCl 10 mg 02/22/20 13:52 02/22/20 14:09 Flexeril PO 02/22/20 13:53 10 mg ONETIME ONE Administration Ketorolac Tromethamine 60 mg 02/22/20 13:52 02/22/20 14:09 Toradol IM 02/22/20 13:53 60 mg ONETIME ONE Administration Prednisone 20 mg 02/22/20 14:46 Prednisone PO 02/22/20 14:47 ONETIME ONE - Re-Assessments/Exams Free Text/Narrative Re-Assessment/Exam: On exam, patient did have a positive Spurling maneuver on the right side. Compression of the C-spine yielded pain and tingling down his right arm. He does have a marked tenderness throughout his right trapezius muscle extending up into the right lateral neck muscles. On review of his cervical MRI completed March 05, 2019, patient does have degenerative changes of his C-spine. 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 This is likely the cause of his symptoms today. I have ordered an injection of Toradol and Flexeril p.o. 02/22/20 14:48 Patient continues to have pain after the medications given. I have ordered a Orion and prednisone to be given now. Discussed the option of an outpatient MRI, and the patient did request that this be ordered. I will write orders for this. Discussed with him that he will likely see a jump in his blood sugars while on the prednisone, however this should return to normal after the treatment is complete. I recommend that he call to schedule a follow-up appointment with his primary care provider for early next week. We will send a prescription for the prednisone, Voltaren, and Orion to clinic pharmacy. He does still have Flexeril at home that he may use as needed. Discharge instructions as documented. Departure - Departure Time of Disposition: 14:51 Disposition: Home, Self-Care 01 Condition: Good Clinical Impression: Right cervical radiculopathy - Discharge Information *PRESCRIPTION DRUG MONITORING PROGRAM REVIEWED*: Yes *COPY OF PRESCRIPTION DRUG MONITORING REPORT IN PATIENT CHRISTINE: No Prescriptions: Acetaminophen/HYDROcodone [Orion 325-5 MG] 1 - 2 tab PO Q6H PRN #10 tablet PRN Reason: Pain predniSONE [Prednisone] 20 mg PO Q12H 5 Days #10 tablet Diclofenac Sodium [Voltaren] 50 mg PO Q8H 5 Days #15 tab.ec Instructions: Cervical Radiculopathy Referrals: Gayathri Shell NP [Primary Care Provider] - Forms: ED Department Discharge Additional Instructions: You were seen in the emergency department today for pain to your posterior right shoulder up into the right side of your neck. Examination did yield pain and tingling down your right arm with compression of your C-spine indicating that you are suffering from cervical radiculopathy. This is a compression of the nerves coming out of your cervical spine which is likely associated with your bulging disc at C6-C7. While in the ER you received a Toradol, Flexeril, Orion, and prednisone. A prescription for prednisone, Orion, and Voltaren have been sent to clinic pharmacy. Uses medications as prescribed. As we discussed, you will likely notice an increase in your blood sugars while on the prednisone; however, this should resolve within a couple days of completing the medication. You may continue to use the Flexeril that you have at home as needed. I would recommend that you apply heat to the area intermittently for the next few days. An order for an outpatient MRI has been completed. I would recommend that you call the radiology department to schedule this examination. The number to schedule is [phone]. I would also recommend that you call to schedule a follow-up with your primary care provider for early next week. If you should experience any worsening symptoms, please do not hesitate to return to the emergency department. Sepsis Event Note (ED) - Evaluation Sepsis Screening Result: No Definite Risk - Focused Exam Vital Signs: Vital Signs Temp Pulse Resp BP Pulse Ox 02/22/20 13:22 97.1 F 103 H 18 146/91 H 97
[2020-02-22] MEDS ORDERED: predniSONE 20 MG Tab PO ONE (14:46)
[2020-02-22] MEDS ORDERED: Acetaminophen/HYDROcodone 325-5 MG Tab PO ONE (14:46)
== END 2020-02-22 15:31 | disposition home or self-care (01) ==
LOC: JD.ED 13:14
DX: M54.12 Radiculopathy, cervical region (principal); E11.9 Type 2 diabetes mellitus without complications; E66.9 Obesity, unspecified; F41.0 Panic disorder [episodic paroxysmal anxiety]; F32.9 Major depressive disorder, single episode, unspecified; Z87.891 Personal history of nicotine dependence; Z88.0 Allergy status to penicillin; Z88.1 Allergy status to other antibiotic agents; Z88.8 Allergy status to other drugs, medicaments and biological substances; Z79.84 Long term (current) use of oral hypoglycemic drugs; Z79.899 Other long term (current) drug therapy; Z68.34 Body mass index [BMI] 34.0-34.9, adult
CPT/HCPCS: 96372; 99283; A9270; J1885; J7512

== ENCOUNTER 2020-02-29 23:05 | Emergency (ER) | payer BC ==
[2020-03-01] MEDS ORDERED: Lactated Ringers 1,000 ML IV ONE (01:15)
[2020-03-01] MEDS ORDERED: Orphenadrine 100 MG Tab.ER PO STA (01:18)
--- NOTE | 2020-03-01 01:25 | EDM.PDOC ---
ED HPI GENERAL MEDICAL PROBLEM - General Chief Complaint: Neck Problem Stated Complaint: RIGHT SIDE NECK PAIN Time Seen by Provider: 03/01/20 00:43 Source of Information: Reports: Patient History Limitations: Reports: No Limitations - History of Present Illness INITIAL COMMENTS - FREE TEXT/NARRATIVE: Mr. Garcia is a very pleasant 44-year-old gentleman with a past medical his tory significant for diabetes and chronic neck pain, who, medical records indicate, was seen in this ED on 02/22/2020 complaining of worsening of his neck pain, along with symptoms of right cervical radiculopathy, for 3 days prior. No recent injury. He reported that a prior MRI of the cervical spine had indicated degenerative disc disease, however, the patient has not previously undergone cervical spine surgery. He had been taking Tylenol, ibuprofen, naproxen, Flexeril, and applying heat and cold, all without relief. The patient was treated with Durant, Toradol, Flexeril, and oral prednisone before being discharged home with a prescription for Durant, Voltaren, and prednisone. An outpatient MRI was ordered, to be performed on 03/06/2020. The patient tells me that he met with a spinal surgeon about 6 months ago, who may have recommended surgery, however, the patient did not follow-up. The patient now returns to the ED stating that the Durant, Voltaren, and prednisone did not help his symptoms at all. He reports that he has had tingling, numbness, pain, and weakness to his right upper extremity for the past 10 days. He has not checked his blood glucose, but believes that it is high, since things smell unusual, and he feels dehydrated. He also states that he has been feeling lightheaded, generally weak, and slightly feverish for the past 1 to 2 months. Here in the ED, the patient's initial BP is found to be mildly elevated at 153/82, with a tachycardia of 102 bpm. He is afebrile, saturating 97% on room air. Other than the above symptoms, the patient denies recent documented fever, chills, sore throat, ear pain, nasal or sinus congestion, cough, dyspnea, chest pain, palpitations, nausea, vomiting, constipation, diarrhea, abdominal pain, urinary symptoms, recent weight gain or weight loss, recent bloody bowel movements or black bowel movements, recent joint aches, headaches, or rashes. The patient's PCP is Gayathri Shell NP. Right Knee Pain Score (Numeric/FACES): 10 - Related Data Allergies Allergy/AdvReac Type Severity Reaction Status Date / Time cephalexin [From Keflex] Allergy Severe Anaphylactic Verified 02/29/20 23:18 Shock Cephalosporins Allergy Severe Anaphylactic Verified 02/29/20 23:18 Shock Penicillins Allergy Severe Anaphylactic Verified 02/29/20 23:18 Shock Ilcygme-Jou-Dwj Reductase Allergy Severe Anaphylactic Verified 02/29/20 23:18 Inhibitor Shock empagliflozin AdvReac Severe Abdominal Verified 02/29/20 23:18 [From Jardiance] Pain Home Meds: Home Meds ALPRAZolam [Alprazolam] 0.25 mg PO BID PRN 09/30/18 [History] DULoxetine [Cymbalta] 90 mg PO DAILY 09/30/18 [History] glipiZIDE [Glucotrol] 10 mg PO BID 09/30/18 [History] metFORMIN HCl [Metformin HCl] 1,000 mg PO BID 09/30/18 [History] Testosterone [Androgel] 1.25 gm TOP DAILY 02/22/20 [History] Ascorbic Acid [Vitamin C] 1,000 mg PO DAILY 02/29/20 [History] Garlic 1 tab PO DAILY 02/29/20 [History] Insulin Glarg,Human.Rec.Analog [Lantus] 18 units SQ BEDTIME 02/29/20 [History] Insulin Glarg,Human.Rec.Analog [Lantus] 34 unit SQ DAILY 02/29/20 [History] Multivitamin [Multivitamins] 1 tab PO DAILY 02/29/20 [History] Sennosides/Docusate Sodium [Stool Softener-Laxative] 1 tab PO DAILY 02/29/20 [History] Orphenadrine [Norflex] 1 tab PO Q12H PRN #14 tab.er 03/01/20 [Rx] Past Medical History Cardiovascular History: Reports: High Cholesterol Respiratory History: Reports: Sleep Apnea (nightly AutoPAP) Gastrointestinal History: Reports: Colon Polyp, GERD, PUD Psychiatric History: Reports: Anxiety, Depression, Panic Attack Endocrine/Metabolic History: Reports: Diabetes, Type II, Obesity/BMI 30+ - Past Surgical History HEENT Surgical History: Reports: Naso-Sinus Surgery, Oral Surgery (dental abscess drainange) GI Surgical History: Reports: Colonoscopy (x 1), EGD (x 1), Hernia, Inguinal (when 1 yrs old) Male Surgical History: Reports: Other (See Below) (Right teste torsion repair when 16 yrs old) Social & Family History - Family History Family Medical History: Noncontributory - Tobacco Use Smoking Status *Q: Former Smoker Years of Tobacco use: 13 Packs/Tins Daily: 0.3 Month/Year Tobacco Last Used: Quit 1999 - Caffeine Use Caffeine Use: Reports: Coffee, Soda, Tea Caffeine Use Comment: [employer] has caffeine in it. - Alcohol Use Alcohol Use History: Yes Alcohol Use Frequency: Rarely - Recreational Drug Use Recreational Drug Use: No - Living Situation & Occupation Living situation: Reports: , with Family (with ex- and son) Occupation: Employed ([employer]) ED ROS GENERAL - Review of Systems Review Of Systems: Comprehensive ROS is negative, except as noted in HPI. Musculoskeletal: Reports: Neck Pain (chronic) ED EXAM, UPPER BACK/NECK PAIN - Physical Exam Exam: See Below Exam Limited By: No Limitations General Appearance: Alert, WD/WN, No Apparent Distress Eye Exam: Bilateral Eye: EOMI, Normal Inspection Ears Exam: Normal External Exam, Hearing Grossly Normal Nose Exam: Normal Inspection Throat/Mouth Exam: Normal Inspection, Normal Lips, Normal Voice, No Airway Compromise Head Exam: Atraumatic, Normocephalic Neck Exam: Full Range of Motion, Normal Alignment, Paraspinous Muscle Tender, Other (Right upper extremity pain/paresthesia induced with turning the head to the right and with tipping the chin to the chest, however, the greatest injection of symptoms was with extending the head backwards. No worsening of symptoms by turning his head to the left.) Cardiovascular/Respiratory: Regular Rate, Rhythm, No M/R/G, Normal Peripheral Pulses, No JVD, Normal Breath Sounds, No Respiratory Distress GI/Abdominal: Normal Bowel Sounds, Soft, No Organomegaly, No Distention, No Abnormal Bruit, No Mass, Tender (generalized tenderness, which the patient states is chronic, for unknown reasons) (Male) Exam: Deferred Rectal (Males) Exam: Deferred Back Exam: Normal Inspection, Full Range of Motion, NT Extremities: Normal Inspection, Normal Range of Motion, No Pedal Edema, Normal Capillary Refill Neurologic: No Motor/Sensory Deficits, Alert, Oriented x 3 Psychiatric: Normal Affect Skin Exam: Normal Color, Warm/Dry Course - Vital Signs Last Recorded V/S: Last Vital Signs Temp 36.4 C 02/29/20 23:14 Pulse 102 H 02/29/20 23:14 Resp 16 02/29/20 23:14 BP 153/82 H 02/29/20 23:14 Pulse Ox 97 02/29/20 23:14 - Orders/Labs/Meds Labs: Laboratory Tests 03/01/20 03/01/20 03/01/20 Range/Units 01:24 01:24 01:24 WBC 4.12 L (4.23-9.07) K/mm3 RBC 4.95 (4.63-6.08) M/mm3 Hgb 12.5 L (13.7-17.5) gm/dl Hct 38.0 L (40.1-51.0) % MCV 76.8 L D (79.0-92.2) fl MCH 25.3 L (25.7-32.2) pg MCHC 32.9 (32.2-35.5) g/dl RDW Std Deviation 36.6 (35.1-43.9) fL Plt Count 183 (163-337) K/mm3 MPV 11.8 (9.4-12.3) fl Neutrophils % (Manual) 60 (40-60) % Band Neutrophils % 0 (0-10) % Lymphocytes % (Manual) 37 (20-40) % Atypical Lymphs % 0 % Monocytes % (Manual) 2 (2-10) % Eosinophils % (Manual) 1 (0.8-7.0) % Basophils % (Manual) 0 L (0.2-1.2) Platelet Estimate Adequate Plt Morphology Comment Normal Poikilocytosis 1+ slight Anisocytosis 1+ slight RBC Morph Comment Not Reportable Sodium 129 L (136-145) mEq/L Potassium 4.5 (3.5-5.1) mEq/L Chloride 93 L (98-107) mEq/L Carbon Dioxide 26 (21-32) mEq/L Anion Gap 14.5 (5-15) BUN 14 (7-18) mg/dL Creatinine 1.1 (0.7-1.3) mg/dL Est Cr Clr Drug Dosing 81.18 mL/min Estimated GFR (MDRD) > 60 (>60) mL/min BUN/Creatinine Ratio 12.7 L (14-18) Glucose 535 H* (74-106) mg/dL POC Glucose (70-105) mg/dL Calcium 8.2 L (8.5-10.1) mg/dL Magnesium 2.2 (1.8-2.4) mg/dl Total Bilirubin 0.5 (0.2-1.0) mg/dL AST TNP ALT TNP Alkaline Phosphatase 212 H (46-116) U/L Total Protein TNP Albumin 3.6 (3.4-5.0) g/dl Globulin 4.0 gm/dL Albumin/Globulin Ratio 0.9 L (1-2) Ketones 0.20 (0.0-0.3) mM 03/01/20 03/01/20 03/01/20 Range/Units 04:11 05:11 06:18 WBC (4.23-9.07) K/mm3 RBC (4.63-6.08) M/mm3 Hgb (13.7-17.5) gm/dl Hct (40.1-51.0) % MCV (79.0-92.2) fl MCH (25.7-32.2) pg MCHC (32.2-35.5) g/dl RDW Std Deviation (35.1-43.9) fL Plt Count (163-337) K/mm3 MPV (9.4-12.3) fl Neutrophils % (Manual) (40-60) % Band Neutrophils % (0-10) % Lymphocytes % (Manual) (20-40) % Atypical Lymphs % % Monocytes % (Manual) (2-10) % Eosinophils % (Manual) (0.8-7.0) % Basophils % (Manual) (0.2-1.2) Platelet Estimate Plt Morphology Comment Poikilocytosis Anisocytosis RBC Morph Comment Sodium (136-145) mEq/L Potassium (3.5-5.1) mEq/L Chloride (98-107) mEq/L Carbon Dioxide (21-32) mEq/L Anion Gap (5-15) BUN (7-18) mg/dL Creatinine (0.7-1.3) mg/dL Est Cr Clr Drug Dosing mL/min Estimated GFR (MDRD) (>60) mL/min BUN/Creatinine Ratio (14-18) Glucose (74-106) mg/dL POC Glucose 319 H 305 H 274 H (70-105) mg/dL Calcium (8.5-10.1) mg/dL Magnesium (1.8-2.4) mg/dl Total Bilirubin (0.2-1.0) mg/dL AST ALT Alkaline Phosphatase (46-116) U/L Total Protein Albumin (3.4-5.0) g/dl Globulin gm/dL Albumin/Globulin Ratio (1-2) Ketones (0.0-0.3) mM /18/20 Range/Units 07:33 WBC (4.23-9.07) K/mm3 RBC (4.63-6.08) M/mm3 Hgb (13.7-17.5) gm/dl Hct (40.1-51.0) % MCV (79.0-92.2) fl MCH (25.7-32.2) pg MCHC (32.2-35.5) g/dl RDW Std Deviation (35.1-43.9) fL Plt Count (163-337) K/mm3 MPV (9.4-12.3) fl Neutrophils % (Manual) (40-60) % Band Neutrophils % (0-10) % Lymphocytes % (Manual) (20-40) % Atypical Lymphs % % Monocytes % (Manual) (2-10) % Eosinophils % (Manual) (0.8-7.0) % Basophils % (Manual) (0.2-1.2) Platelet Estimate Plt Morphology Comment Poikilocytosis Anisocytosis RBC Morph Comment Sodium (136-145) mEq/L Potassium (3.5-5.1) mEq/L Chloride (98-107) mEq/L Carbon Dioxide (21-32) mEq/L Anion Gap (5-15) BUN (7-18) mg/dL Creatinine (0.7-1.3) mg/dL Est Cr Clr Drug Dosing mL/min Estimated GFR (MDRD) (>60) mL/min BUN/Creatinine Ratio (14-18) Glucose (74-106) mg/dL POC Glucose 252 H (70-105) mg/dL Calcium (8.5-10.1) mg/dL Magnesium (1.8-2.4) mg/dl Total Bilirubin (0.2-1.0) mg/dL AST ALT Alkaline Phosphatase (46-116) U/L Total Protein Albumin (3.4-5.0) g/dl Globulin gm/dL Albumin/Globulin Ratio (1-2) Ketones (0.0-0.3) mM Meds: Medications Discontinued Medications Generic Name Dose Route Start Last Admin Trade Name Maya PRN Reason Stop Dose Admin Lactated Ringer's 1,000 mls @ 999 mls/hr 03/01/20 01:15 03/01/20 01:30 Ringers, Lactated IV 03/01/20 02:15 999 mls/hr .BOLUS ONE Administration Insulin Human Regular 100 unit 100 mls @ 10.433 mls/hr 03/01/20 01:15 03/01/20 05:11 / Sodium Chloride IV 0.08 units/kg/hr TITRATE NEENA 8 mls/hr Titration Protocol 0.1 UNITS/KG/HR Insulin Human Regular 100 unit 100 mls @ 6 mls/hr 03/01/20 04:15 / Sodium Chloride IV TITRATE NEENA Protocol 6 UNIT/HR Insulin Human Regular 100 unit 100 mls @ 8 mls/hr 03/01/20 05:15 / Sodium Chloride IV TITRATE NEENA Protocol 8 UNIT/HR Ketorolac Tromethamine 30 mg 03/01/20 03:02 03/01/20 03:06 Toradol IVPUSH 03/01/20 03:03 30 mg ONETIME ONE Administration Orphenadrine Citrate 100 mg 03/01/20 01:18 03/01/20 01:31 Norflex PO 03/01/20 01:19 100 mg ONETIME STA Administration - Re-Assessments/Exams Free Text/Narrative Re-Assessment/Exam: 03/01/20 01:19 As above, the patient is complaining of continued right neck pain with radiation down his entire right upper extremity, with tingling and numbness. On examination, the patient's right upper extremity pain and paresthesia worsened with turning his head to the right, and with tilting his chin to his chest. This indicates narrowing of the neural foramina. His greatest pain was induced by extending his head backwards, which increases pressure on the cervical disc, possibly causing retrograde bulging. Although he claims that he has weakness to his right upper extremity, I am not finding any weakness on examination, therefore, at this time, I do not see an indication for an emergency MRI of the cervical spine. I have ordered oral Norflex. I am more concerned at this time with the patient's hyperglycemia. The patient has not checked his blood glucose since taking the prednisone, but was having some symptoms of hyperglycemia, including things smelling unusual, and feeling dehydrated. We performed an Accu-Chek, finding his blood glucose to be >400. I have therefore ordered some blood work, and in the meantime, the patient will be treated with IV fluid and an insulin drip. 03/01/20 02:09 The patient's CBC is remarkable for a WBC count low at 4.12, and an H/H is depressed at 12.5/38.0, with the remainder of his CBC being unremarkable. His CMP is remarkable for a sodium depressed at 129, which corrects to 134 due to a blood glucose of 535. His alkaline phosphatase is slightly elevated 212, with remainder of his CMP being unremarkable. His magnesium level is within normal limits at 2.2. His ketones are within normal limits at 0.20. We will continue to Accu-Chek hourly. 03/01/20 04:15 The patient's Accu-Chek after 1 hour is down to 319, which is too great of a drop. I have therefore decreased his insulin drip from 10 units/hr to 6 units/hr. 03/01/20 05:13 The patient's Accu-Chek after 1 hour at 6 units/hr down to 305, is now to slow of a rate decrease. I have therefore increased his insulin drip to 8 units/hr. 03/01/20 07:35 Accu-Chek 1 hour after the insulin drip was increased to 8 units/h was 274. The rate of the insulin was kept the same, and his most recent Accu-Chek is now 252. I will discharge him home with the recommendation that he follow-up with his PCP at the next available appointment. 03/01/20 07:39 Results and my plan to discharge patient home discussed with the patient. I will submit a prescription for Norflex, that he can take with [id number] ibuprofen. Departure - Departure Time of Disposition: 07:39 Disposition: Home, Self-Care 01 Condition: Good Clinical Impression: Right cervical radiculopathy, Hyperglycemia due to type 2 diabetes mellitus - Discharge Information *PRESCRIPTION DRUG MONITORING PROGRAM REVIEWED*: Not Applicable *COPY OF PRESCRIPTION DRUG MONITORING REPORT IN PATIENT CHRISTINE: Not Applicable Prescriptions: Orphenadrine [Norflex] 1 tab PO Q12H PRN #14 tab.er PRN Reason: Muscle Spasm Instructions: Cervical Radiculopathy, [id number] Referrals: Gayathri Shell NP [Primary Care Provider] - Forms: ED Department Discharge Additional Instructions: You were seen in the emergency room for continued neck pain with radiation down your right arm. Work-up in the ER included blood work, which found your blood sugar to be substantially elevated at 535. You were treated with IV fluid, an insulin drip, the pain reliever Toradol, and the muscle relaxant Norflex. After several hours, your most recent blood sugar has been brought down to 252. We recommend that you check your blood sugar 4 times a day, and take an appropriate dose of insulin, accordingly. A prescription for Norflex has been sent to [facility], located in [facility], just across the [address] from the hospital. Take 1 tablet of Norflex every 12 hours, starting this evening, 03/01/2020, as prescribed. Norflex works well with ibuprofen. Take 3 tablets (600 mg) up to every 8 hours, with food, as needed for discomfort. Follow-up with your PCP, Gayathri Shell NP, for further evaluation and treatment of your neck pain. If any other problems, please do not hesitate to return to the ER. Sepsis Event Note (ED) - Evaluation Sepsis Screening Result: No Definite Risk
[2020-03-01] MEDS ORDERED: Ketorolac 30 MG/ML SDV IVPUSH ONE (03:02)
== END 2020-03-01 07:55 | disposition home or self-care (01) ==
LOC: JD.ED 23:05
DX: M54.12 Radiculopathy, cervical region (principal); E11.65 Type 2 diabetes mellitus with hyperglycemia; K21.9 Gastro-esophageal reflux disease without esophagitis; E11.9 Type 2 diabetes mellitus without complications; E66.9 Obesity, unspecified; Z68.34 Body mass index [BMI] 34.0-34.9, adult; Z79.4 Long term (current) use of insulin; Z88.1 Allergy status to other antibiotic agents; Z79.899 Other long term (current) drug therapy; Z87.891 Personal history of nicotine dependence
CPT/HCPCS: 36415; 80053; 82009; 82962; 83735; 85007; 85027; 96361; 96374; 99284; A9270; J1815; J1885; J7050; J7120